=== PATIENT | female | born 1945 | race Caucasian/White ===

== ENCOUNTER 2016-06-10 05:38 | Emergency (ER) | payer OTHER ==
[~2016-06-10] VITALS: Ht 165.1 cm; Wt 83.2 kg
[~2016-06-10 05:38] MED LIST: AMANTADINE100 MG PO; AMBIEN10 M1 PO; ARICEPT5 MG PO; ASPIRIN325 MG PO; ASPIRIN81 M1 PO; ATIVAN2 MG PO; CALCIUM600 MG PO; CYANOCOBAL1000 MCG/2 IJ; Cipro PO; FLOMAX0.4 M1 PO; Flomax PO; K-DUR20 MEQ PO; LOVASTATIN20 MG PO; MIRALAX17 GM PO; NAMENDA10 MG PO; PROZAC20 M1 PO; RISPERDAL1 MG PO; SEROQUEL100 MG PO; TRAZODONE HCL50 MG PO; ULTRACET1 TABLET PO; VITAMIN D1000 UNIT PO; XANAX2 MG PO; Zofran PO
[2016-06-10 06:08] LABS: HEMATOCRIT 43.6 % (36.0-46.0); MCH 28.8 PG (29.0-34.0); MCHC 32.1 G/DL (30.0-36.0); MCV 89.7 FL (83-99); MEAN PLAT.VOLUME 11.5 uM^3 (9.5-12.4); PLATELET COUNT 248 K/uL (156-360); RBC DIS.WIDTH-CV 14.5 % (11.8-14.6); RBC DIS.WIDTH-SD 46.5 % (39-53); RED BLOOD COUNT 4.86 M/uL (3.80-5.20); WHITE BLOOD COUNT 13.7 K/uL (4.1-10.2)
[2016-06-10 06:18] LABS: CHLORIDE 109 mEq/L (99-109); POTASSIUM 4.2 mEq/L (3.7-5.4); SODIUM 143 mEq/L (136-147)
[2016-06-10 06:21] LABS: GLUCOSE 140 mg/dL (70-99)
[2016-06-10 06:22] LABS: ANION GAP 10 MEQ/L (2-14)
[2016-06-10 06:23] LABS: TOTAL BILIRUBIN 0.7 mg/dL (0.0-1.0)
[2016-06-10 06:24] LABS: ALKALINE PHOSPHATASE 123 IU/L (3-129); GFR ESTIMATE (CALCULATED) > 59 mL/min/
[2016-06-10 06:25] LABS: UREA NITROGEN (BUN) 18 mg/dL (9-23)
[2016-06-10 07:19] LABS: ADD MIUA? YES; BILIRUBIN NEGATIVE; BLOOD MODERATE; COLOR YELLOW ((YELLOW)); GLUCOSE (STRIP) NEGATIVE; KETONES NEGATIVE; LEUKOCYTES NEGATIVE; NITRITE NEGATIVE; PROTEIN (STRIP) TRACE; SPECIFIC GRAVITY 1.023 (1.000-1.030); UROBILINOGEN 0.2 MG/DL (0.2-1.0)
[2016-06-10 07:45] LABS: EPITHELIAL CELLS RARE; WHITE BLOOD CELLS 0-5 /HPF (0-5)
[2016-06-10 07:46] LABS: BACTERIA NONE SEEN; CASTS NONE SEEN /LPF; CRYSTALS NONE SEEN; MUCUS NONE SEEN; UCUL ADDED? NO
[2016-06-10] MEDS ORDERED: OLANZAPINE5 MG PO (08:14)
[2016-06-10] MEDS ORDERED: POTASSIUM CITR10 MEQ PO (08:14)
[2016-06-10] MEDS ORDERED: TRAMADOL HCL50 MG PO (08:26)
[2016-06-10] MEDS ORDERED: CIPRO500 MG PO (08:26)
[2016-06-10 08:41] VITALS: BP 127/63
== END 2016-06-10 09:23 | disposition home or self-care (01) ==
LOC: EME 05:38
DX: N20.0 Calculus of kidney (principal); D72.829 Elevated white blood cell count, unspecified; I10 Essential (primary) hypertension; Z87.891 Personal history of nicotine dependence; Z88.6 Allergy status to analgesic agent
CPT/HCPCS: 74176; 80053; 81003; 85027; 93005; 99281; 99285; J2405; J7030

== ENCOUNTER 2017-01-02 10:49 | Emergency (ER) | payer OTHER ==
[~2017-01-02] VITALS: Ht 157.5 cm; Wt 72.6 kg
[~2017-01-02 10:49] MED LIST changes: +CIPRO500 MG PO; +OLANZAPINE5 MG PO; +POTASSIUM CITR10 MEQ PO; +TRAMADOL HCL50 MG PO
[2017-01-02 12:12] LABS: EOSINOPHIL (%) 0.1 % (0-5); IMMATURE GRANULOCYTE (%) 0.4 % (0.0-0.7); INSTRUMENT ABS NEUTROPHIL CT 6.7 K/uL; LYMPHOCYTE COUNT 3.1 K/uL (1.0-2.8); MCH 27.7 PG (29.0-34.0); MCHC 32.6 G/DL (30.0-36.0); MEAN PLAT.VOLUME 11.1 uM^3 (9.5-12.4); MONOCYTE (%) 4.5 % (3-12); MONOCYTE COUNT 0.5 K/uL (0-0.8); NEUTROPHIL (%) 64.4 % (45-76); NEUTROPHIL COUNT 6.7 K/uL (1.8-6.4); PLATELET COUNT 255 K/uL (156-360); RBC DIS.WIDTH-CV 15.3 % (11.8-14.6); RBC DIS.WIDTH-SD 47.1 % (39-53); RED BLOOD COUNT 4.94 M/uL (3.80-5.20); WHITE BLOOD COUNT 10.4 K/uL (4.1-10.2)
[2017-01-02 12:26] LABS: CHLORIDE 110 mEq/L (99-109); POTASSIUM 3.8 mEq/L (3.7-5.4); SODIUM 143 mEq/L (136-147)
[2017-01-02 12:29] LABS: GLUCOSE 98 mg/dL (70-99)
[2017-01-02 12:30] LABS: ANION GAP 12 MEQ/L (2-14); TOTAL BILIRUBIN 1.1 mg/dL (0.0-1.0)
[2017-01-02 12:32] LABS: ALKALINE PHOSPHATASE 129 IU/L (3-129); GFR ESTIMATE (CALCULATED) > 59 mL/min/
[2017-01-02 12:33] LABS: UREA NITROGEN (BUN) 13 mg/dL (9-23)
[2017-01-02 12:34] LABS: DIRECT BILIRUBIN 0.4 mg/dL (0.0-0.3)
[2017-01-02 12:36] LABS: LIPASE 22 U/L (1.0-51.0)
[2017-01-02 15:03] LABS: ADD MIUA? YES; BILIRUBIN NEGATIVE; BLOOD NEGATIVE; COLOR YELLOW ((YELLOW)); GLUCOSE (STRIP) NEGATIVE; KETONES 20; LEUKOCYTES TRACE; NITRITE NEGATIVE; PROTEIN (STRIP) NEGATIVE; UROBILINOGEN 0.2 MG/DL (0.2-1.0)
[2017-01-02 15:10] LABS: BACTERIA NONE SEEN /HPF; EPITHELIAL CELLS 1+ /HPF; MUCUS TRACE /LPF; RED BLOOD CELLS 0-5 /HPF (0-5); UCUL ADDED? NO; WHITE BLOOD CELLS 0-5 /HPF (0-5)
[2017-01-02] MEDS ORDERED: ZOFRAN ODT4 MG PO (15:45)
[2017-01-02 16:11] VITALS: BP 149/70
== END 2017-01-02 16:19 | disposition home or self-care (01) ==
LOC: EME 10:49
PROVIDERS: Personal Emergency Response Attendant
DX: N20.0 Calculus of kidney (principal); I10 Essential (primary) hypertension; Z87.442 Personal history of urinary calculi; F17.200 Nicotine dependence, unspecified, uncomplicated; Z88.6 Allergy status to analgesic agent
CPT/HCPCS: 74177; 80048; 80076; 81003; 83690; 85025; 93005; 99281; 99284; J2405; J7030

== ENCOUNTER 2017-01-27 19:01 | Emergency (ER) | payer OTHER ==
[~2017-01-27] VITALS: Ht 165.1 cm; Wt 76.1 kg
[~2017-01-27 19:01] MED LIST changes: -NORCO 5/3251 TABLET PO
[2017-01-27] MEDS ORDERED: NORCO 5/3251 TABLET PO (21:16)
[2017-01-27 21:39] VITALS: BP 162/79
== END 2017-01-27 21:39 | disposition home or self-care (01) ==
LOC: EME 19:01
DX: S80.01XA Contusion of right knee, initial encounter (principal); S80.02XA Contusion of left knee, initial encounter; W18.2XXA Fall in (into) shower or empty bathtub, initial encounter; Y93.E1 Activity, personal bathing and showering; Y92.002 Bathroom of unspecified non-institutional (private) residence as the place of occurrence of the external cause; Z87.442 Personal history of urinary calculi; I10 Essential (primary) hypertension; Z87.891 Personal history of nicotine dependence; Z85.828 Personal history of other malignant neoplasm of skin; Z96.652 Presence of left artificial knee joint
CPT/HCPCS: 73564; 99281; 99284

== ENCOUNTER → 2017-01-27 | Outpatient (CLI) | payer OTHER ==
[~2017-01-27] MED LIST changes: +NORCO 5/3251 TABLET PO; +ZOFRAN ODT4 MG PO
== END | disposition home or self-care (01) ==
LOC: NUC 07:41
DX: R11.0 Nausea (principal)
CPT/HCPCS: 78226; A9510